=== PATIENT | female | born 1975 | race Caucasian/White ===

== ENCOUNTER 2022-06-12 08:23 | Outpatient (CLI) | payer BC, SELFPAY ==
[2022-06-12 13:03] LABS: Chloride* 103 mmol/L (96-114); Potassium* 4.4 mmol/L (3.6-5.1); Sodium* 138 mmol/L (135-149)
[2022-06-12 13:05] LABS: Cholesterol* 206 mg/dL (90-199)
[2022-06-12 13:06] LABS: Blood Urea Nitrogen* 13 mg/dL (5-24); Carbon Dioxide* 30 mmol/L (20-32); Creatinine* 0.7 mg/dL (0.5-1.5); Estimated Glomerular Filt Rate 107 ml/min; Glucose* 88 mg/dL (60-115); Triglycerides* 64 mg/dL (40-149)
[2022-06-12 13:07] LABS: Calcium* 9.1 mg/dL (8.4-10.6); HDL Cholesterol* 84 mg/dL (>=50); LDL Cholesterol Calculated 109 mg/dL (<100)
== END 2022-06-12 08:24 | disposition home or self-care (01) ==
PROVIDERS: PCP Emergency Medicine; Visit Provider Emergency Medicine
DX: Z01.419 Encounter for gynecological examination (general) (routine) without abnormal findings (principal); N91.5 Oligomenorrhea, unspecified; Z13.6 Encounter for screening for cardiovascular disorders
CPT/HCPCS: 80048; 80061

== ENCOUNTER 2022-06-19 15:43 | Outpatient (CLI) | payer BC, SELFPAY ==
[2022-06-19 21:59] LABS: TSH With Reflex to FT4* 0.404 uIU/mL (0.270-4.200)
[2022-06-21 16:47] LABS: Prolactin 6.5 ng/mL (2.8-29.2)
== END 2022-06-19 15:44 | disposition home or self-care (01) ==
PROVIDERS: PCP Emergency Medicine; Visit Provider Emergency Medicine
DX: Z01.419 Encounter for gynecological examination (general) (routine) without abnormal findings (principal); N91.5 Oligomenorrhea, unspecified; Z12.4 Encounter for screening for malignant neoplasm of cervix
CPT/HCPCS: 84146; 84443; 87624; 88175

== ENCOUNTER 2023-06-20 08:23 | Outpatient (CLI) | payer BC, SELFPAY | END 2023-06-20 08:24 | disposition home or self-care (01) | LOC: NFLDREF 06-21 09:54 | PROVIDERS: PCP Emergency Medicine; Referring Provider Emergency Medicine; Visit Provider Emergency Medicine | DX: Z00.00 Encounter for general adult medical examination without abnormal findings (principal); N92.6 Irregular menstruation, unspecified; Z13.6 Encounter for screening for cardiovascular disorders | CPT/HCPCS: 80048; 80061 ==

== ENCOUNTER 2023-08-01 13:50 | Outpatient (CLI) | payer BC, SELFPAY ==
--- NOTE | 2023-08-01 14:00 | CRLHL7_ITS ---
For Patients: As a result of the Century Cures Act, medical imaging exams and procedure reports are released immediately into your electronic medical record. You may view this report before your referring provider. If you have questions, please contact your health care provider. INDICATION: Irregular menses COMPARISON: none TECHNIQUE: 2D andrea scale and color Doppler images were acquired of the pelvis using a transabdominal and transvaginal approach. FINDINGS: Left-sided intramural fibroid is present measuring 2.2 x 2.3 x 2.2 cm. Additional fibroid is present within right uterine fundus measuring 1.4 x 1.1 x 1.2 cm. Uterus measures 11.0 cm in length by 4.9 cm in AP diameter by 5.9 cm in transverse dimension. The endometrial lining measures 5 mm in composite thickness. The right ovary measures 3.0 x 1.6 x 1.9 cm in size and the left ovary measures 3.1 x 1.7 x 1.8 cm. The ovaries demonstrate normal arterial and venous blood flow on color Doppler analysis. There are no suspicious fluid collections within the cul-de-sac. IMPRESSION: Intramural fibroids measuring 1.4 cm and 2.3 cm. No mass effect upon the endometrium. Endometrial thickness 5 millimeters. Dictated by Neo Arambula MD @ 08/04/2023 8:31:59 AM (Electronically Signed)
== END 2023-08-01 13:51 | disposition home or self-care (01) ==
LOC: US 13:56
PROVIDERS: PCP Emergency Medicine; Visit Provider Emergency Medicine
DX: N92.6 Irregular menstruation, unspecified (principal); D25.1 Intramural leiomyoma of uterus
CPT/HCPCS: 76830; 76856

== ENCOUNTER 2024-11-23 09:24 | Outpatient (CLI) | payer BC, SELFPAY | END 2024-11-23 09:25 | disposition home or self-care (01) | PROVIDERS: PCP Emergency Medicine; Visit Provider Emergency Medicine | DX: Z13.220 Encounter for screening for lipoid disorders (principal); Z13.1 Encounter for screening for diabetes mellitus | CPT/HCPCS: 80061; 82947 ==

== ENCOUNTER 2024-11-25 08:54 | Outpatient (CLI) | payer BC, SELFPAY | END 2024-11-25 08:55 | disposition home or self-care (01) | PROVIDERS: PCP Emergency Medicine; Visit Provider Emergency Medicine | DX: N92.0 Excessive and frequent menstruation with regular cycle (principal) | CPT/HCPCS: 82728; 84443 ==